=== PATIENT | male | born 1950 ===

== ENCOUNTER → 2016-11-19 | Outpatient (CLI) | payer OTHER, MEDICARE ==
[~2016-11-19] MED LIST: ASPEC81 PO; ATV5 PO; CLOP1TAB54 PO; CZR50 PO; FLM4 PO; PRVC/40 PO; ZOLP10TA PO
== END | disposition home or self-care (01) ==
LOC: C.PATHSPEC 17:07
PROVIDERS: ATTEND Urology
DX: N40.0 Benign prostatic hyperplasia without lower urinary tract symptoms (principal)